=== PATIENT | male | born 1945 | race Caucasian/White ===

== ENCOUNTER 2021-02-09 18:46 | Inpatient (IN) | payer OTHER ==
[~2021-02-09] VITALS: Ht 175.3 cm; Wt 156.0 kg
[2021-02-09 20:24] LABS: BASOPHILS % (AUTO) 1.3 % (0.0-2.0); EOSINOPHILS % (AUTO) 2.8 % (1.0-6.0); HEMATOCRIT 31.2 % (41-53); HEMOGLOBIN 10.1 g/dL (13.5-17.5); LYMPHOCYTES # (AUTO) 1.4 K/uL (1.0-4.8); LYMPHOCYTES % (AUTO) 12.1 % (22.0-44.0); MEAN CORPUSCULAR HEMOGLOBIN 28.2 pg (26.0-34.0); MEAN CORPUSCULAR HGB CONC 32.4 G/dL (31.0-37.0); MEAN CORPUSCULAR VOLUME 87 fL (80-100); MONOCYTES % (AUTO) 8.9 % (2.0-9.0); NEUTROPHILS # (AUTO) 8.6 K/uL (1.8-7.7); NEUTROPHILS % (AUTO) 74.9 % (40.0-70.0); PLATELET COUNT (AUTO) 251 K/uL (150-450); RED BLOOD CELL COUNT(AUTO) 3.59 MIL/uL (4.50-5.90); RED CELL DISTRIBUTION WIDTH 15.9 % (11.5-14.5)
[2021-02-09 20:27] LABS: COVID AG,FIA SOURCE NASAL SWAB
[2021-02-09 20:33] LABS: CALCIUM, TOTAL 9.1 mg/dL (8.8-10.5); CREATININE 1.44 mg/dL (0.60-1.30); POTASSIUM 4.2 mmol/L (3.5-5.1)
[2021-02-09 20:38] LABS: ALBUMIN 2.5 g/dL (3.4-5.0); BILIRUBIN,TOTAL 0.5 mg/dL (0.1-1.0); TOTAL PROTEIN, SERUM 6.5 g/dL (6.4-8.2)
[2021-02-09 20:41] LABS: INR 1.1 (0.9-1.1); PROTHROMBIN TIME 11.8 SEC (9.4-11.6)
[2021-02-09 20:46] LABS: INFLUENZA TYPE A NEGATIVE FOR TYPE A (NEGATIVE); INFLUENZA TYPE B NEGATIVE FOR TYPE B (NEGATIVE)
[2021-02-09 21:34] LABS: D-DIMER 2.36 mg/L FEU (0.00-0.50)
[2021-02-09] MEDS ORDERED: SODIUM CHLORIDE 0.9% 0 ML ONE (22:49)
[2021-02-09] MEDS ORDERED: IOHEXOL 350 MG/ML 150 ML VIAL ONE (22:50)
[2021-02-10] MEDS ORDERED: ASCO500 PO (00:58)
[2021-02-10] MEDS ORDERED: INSREG SQ (01:18)
[2021-02-10] MEDS ORDERED: TRAM50TA4 PO (01:18)
[2021-02-10] MEDS ORDERED: SIMV-259 PO (01:18)
[2021-02-10] MEDS ORDERED: METO50 PO (01:18)
[2021-02-10] MEDS ORDERED: ASPI-1450 PO (01:18)
[2021-02-10] MEDS ORDERED: GLIP10TA9 PO (01:18)
[2021-02-10] MEDS ORDERED: INSNPH SQ (01:18)
[2021-02-10 01:31] LABS: GLUCOMETER DEV NAME(LOC) ERT.5; GLUCOSE,POINT OF CARE 78 MG/DL (70-110)
[2021-02-10] MEDS ORDERED: TraMADol HCL 50 MG TABLET PO PRN (03:30)
[2021-02-10] MEDS ORDERED: ACETAMINOPHEN 325 MG TABLET PO PRN (03:30)
[2021-02-10] MEDS ORDERED: ONDANSETRON HCL 4 MG/2 ML VIAL IVP PRN (03:30)
[2021-02-10] MEDS ORDERED: 0.9% SODIUM CHLORIDE 10 ML SYRINGE IVP PRN (03:30)
[2021-02-10] MEDS: ASPIRIN 81 MG CHEWABLE TABLET PO SCH (08:44)
[2021-02-10] MEDS: METOPROLOL TARTRATE 50 MG TABLET PO SCH ×2 (08:44→22:48)
[2021-02-10] MEDS: HEPARIN SODIUM,PORCINE 5,000 UNITS/ML VIAL SQ SCH ×2 (08:45→16:41)
[2021-02-10] MEDS: ASCORBIC ACID 500 MG TABLET PO SCH (08:45)
[2021-02-10] MEDS: SIMVASTATIN 10 MG TABLET PO SCH (08:45)
[2021-02-10] MEDS ORDERED: *CLINICAL-LEVOFLOXACIN IVPB DOSING CLINICAL ONE (14:45)
[2021-02-10 15:29] LABS: D-DIMER 3.29 mg/L FEU (0.00-0.50)
[2021-02-10 15:42] LABS: C-REACTIVE PROTEIN QUANT 9.91 mg/dL (0.00-0.30)
[2021-02-10] MEDS: LEVOFLOXACIN 750 MG/D5% WATER 150 ML IV SCH (16:41)
[2021-02-10 21:10] VITALS: BP 140/56
[2021-02-10 23:38] VITALS: BP 122/52
[2021-02-11] MEDS: HEPARIN SODIUM,PORCINE 5,000 UNITS/ML VIAL SQ SCH ×4 (00:16→23:31)
[2021-02-11] MEDS ORDERED: DEXTROSE 50%-WATER 25 GM/50 ML SYRINGE IVP PRN (01:30)
[2021-02-11 04:04] VITALS: BP 141/62
[2021-02-11 06:16] LABS: BASOPHILS % (AUTO) 0.7 % (0.0-2.0); EOSINOPHILS % (AUTO) 2.1 % (1.0-6.0); HEMATOCRIT 30.8 % (41-53); LYMPHOCYTES # (AUTO) 0.8 K/uL (1.0-4.8); LYMPHOCYTES % (AUTO) 7.1 % (22.0-44.0); MEAN CORPUSCULAR HEMOGLOBIN 28.5 pg (26.0-34.0); MEAN CORPUSCULAR HGB CONC 32.4 G/dL (31.0-37.0); MEAN CORPUSCULAR VOLUME 88 fL (80-100); MONOCYTES % (AUTO) 8.7 % (2.0-9.0); NEUTROPHILS # (AUTO) 9.7 K/uL (1.8-7.7); NEUTROPHILS % (AUTO) 81.4 % (40.0-70.0); PLATELET COUNT (AUTO) 230 K/uL (150-450); RED BLOOD CELL COUNT(AUTO) 3.51 MIL/uL (4.50-5.90); RED CELL DISTRIBUTION WIDTH 15.7 % (11.5-14.5)
[2021-02-11] MEDS ORDERED: INSULIN LISPRO 100 UNITS/ML SQ PRN (06:30)
[2021-02-11 06:38] LABS: CALCIUM, TOTAL 9.2 mg/dL (8.8-10.5); CREATININE 1.26 mg/dL (0.60-1.30); POTASSIUM 4.4 mmol/L (3.5-5.1)
[2021-02-11 07:15] VITALS: BP 136/59
[2021-02-11] MEDS: METOPROLOL TARTRATE 50 MG TABLET PO SCH ×2 (08:39→19:57)
[2021-02-11] MEDS: ASCORBIC ACID 500 MG TABLET PO SCH (08:39)
[2021-02-11] MEDS: SIMVASTATIN 10 MG TABLET PO SCH (08:40)
[2021-02-11] MEDS: ASPIRIN 81 MG CHEWABLE TABLET PO SCH (08:40)
[2021-02-11 11:17] VITALS: BP 127/44
[2021-02-11] MEDS: INSULIN LISPRO 100 UNITS/ML SQ PRN ×3 (11:33→21:26)
[2021-02-11] MEDS ORDERED: SODIUM CHLORIDE 0.9% 250 ML IV ONE (14:34)
[2021-02-11] MEDS ORDERED: LISI1TAB53 PO (14:39)
[2021-02-11 15:05] VITALS: BP 110/42
[2021-02-11] MEDS: LEVOFLOXACIN 750 MG/D5% WATER 150 ML IV SCH (15:23)
[2021-02-11 19:35] VITALS: BP 143/72
[2021-02-11 20:26] LABS: GLUCOMETER DEV NAME(LOC) 5S.2B; GLUCOSE,POINT OF CARE 131 MG/DL (70-110)
[2021-02-11 20:26] LABS: GLUCOMETER DEV NAME(LOC) 5S.2B; GLUCOSE,POINT OF CARE 140 MG/DL (70-110)
[2021-02-11 20:26] LABS: GLUCOMETER DEV NAME(LOC) 5S.2B; GLUCOSE,POINT OF CARE 218 MG/DL (70-110)
[2021-02-11 20:26] LABS: GLUCOMETER DEV NAME(LOC) 5S.1; GLUCOSE,POINT OF CARE 192 MG/DL (70-110)
[2021-02-11 23:28] VITALS: BP 142/70
[2021-02-12 03:20] VITALS: BP 149/70
[2021-02-12] MEDS: INSULIN LISPRO 100 UNITS/ML SQ PRN ×4 (06:15→20:55)
[2021-02-12 08:00] VITALS: BP 146/77
[2021-02-12] MEDS: SIMVASTATIN 10 MG TABLET PO SCH (09:03)
[2021-02-12] MEDS: ASCORBIC ACID 500 MG TABLET PO SCH (09:03)
[2021-02-12] MEDS: METOPROLOL TARTRATE 50 MG TABLET PO SCH ×2 (09:03→19:53)
[2021-02-12] MEDS: ASPIRIN 81 MG CHEWABLE TABLET PO SCH (09:03)
[2021-02-12] MEDS: HEPARIN SODIUM,PORCINE 5,000 UNITS/ML VIAL SQ SCH ×2 (09:04→16:51)
[2021-02-12 11:30] VITALS: BP 133/74
[2021-02-12 12:21] LABS: GLUCOMETER DEV NAME(LOC) 5S.1; GLUCOSE,POINT OF CARE 158 MG/DL (70-110)
[2021-02-12 16:00] VITALS: BP 131/73
[2021-02-12 16:24] LABS: EOSINOPHILS % (AUTO) 1.9 % (1.0-6.0); HEMATOCRIT 31.1 % (41-53); LYMPHOCYTES # (AUTO) 0.8 K/uL (1.0-4.8); LYMPHOCYTES % (AUTO) 7.6 % (22.0-44.0); MEAN CORPUSCULAR HEMOGLOBIN 28.1 pg (26.0-34.0); MEAN CORPUSCULAR HGB CONC 32.2 G/dL (31.0-37.0); MEAN CORPUSCULAR VOLUME 87 fL (80-100); MONOCYTES # (AUTO) 0.9 K/uL (0.1-1.0); MONOCYTES % (AUTO) 8.6 % (2.0-9.0); NEUTROPHILS # (AUTO) 8.2 K/uL (1.8-7.7); NEUTROPHILS % (AUTO) 80.9 % (40.0-70.0); PLATELET COUNT (AUTO) 221 K/uL (150-450); RED BLOOD CELL COUNT(AUTO) 3.55 MIL/uL (4.50-5.90); RED CELL DISTRIBUTION WIDTH 15.7 % (11.5-14.5)
[2021-02-12 16:32] LABS: CALCIUM, TOTAL 9.1 mg/dL (8.8-10.5); CREATININE 1.34 mg/dL (0.60-1.30); POTASSIUM 4.6 mmol/L (3.5-5.1)
[2021-02-12] MEDS: LEVOFLOXACIN 750 MG/D5% WATER 150 ML IV SCH (16:51)
[2021-02-12 19:32] VITALS: BP 104/67
[2021-02-12 20:51] LABS: GLUCOMETER DEV NAME(LOC) 5N.3; GLUCOSE,POINT OF CARE 214 MG/DL (70-110)
[2021-02-12 22:36] VITALS: BP 138/86
[2021-02-13] MEDS: HEPARIN SODIUM,PORCINE 5,000 UNITS/ML VIAL SQ SCH (00:06)
[2021-02-13 06:36] LABS: GLUCOMETER DEV NAME(LOC) 5S.1; GLUCOSE,POINT OF CARE 199 MG/DL (70-110)
[2021-02-13 22:51] LABS: GLUCOMETER DEV NAME(LOC) 5N.1C; GLUCOSE,POINT OF CARE 228 MG/DL (70-110)
[2021-02-13 22:51] LABS: GLUCOMETER DEV NAME(LOC) 5N.1C; GLUCOSE,POINT OF CARE 211 MG/DL (70-110)
== END 2021-02-13 00:25 | disposition short-term general hospital (02) | DRG 193 ==
LOC: EMS 18:48 → 5N 02-10 03:27
PROVIDERS: ADMIT Internal Medicine; ATTEND Internal Medicine
DX: J18.9 Pneumonia, unspecified organism (principal); J96.01 Acute respiratory failure with hypoxia; E87.2 Acidosis; N17.9 Acute kidney failure, unspecified; Z68.43 Body mass index [BMI] 50.0-59.9, adult; J90 Pleural effusion, not elsewhere classified; D68.59 Other primary thrombophilia; E11.9 Type 2 diabetes mellitus without complications; E66.01 Morbid (severe) obesity due to excess calories; E78.5 Hyperlipidemia, unspecified; I11.9 Hypertensive heart disease without heart failure; G47.33 Obstructive sleep apnea (adult) (pediatric); J44.9 Chronic obstructive pulmonary disease, unspecified; Z20.822 Contact with and (suspected) exposure to COVID-19; Z85.46 Personal history of malignant neoplasm of prostate; Z99.81 Dependence on supplemental oxygen; Z87.01 Personal history of pneumonia (recurrent); Z79.899 Other long term (current) drug therapy; Z88.0 Allergy status to penicillin; Z88.8 Allergy status to other drugs, medicaments and biological substances; Z91.013 Allergy to seafood; Z90.49 Acquired absence of other specified parts of digestive tract
CPT/HCPCS: 71045; 78582; 80048; 80053; 82728; 82962; 83615; 83735; 83880; 84484; 85025; 85379; 85384; 85610; 86140; 87081; 87804; 93005; 93970; 97110; 97163; 99291; J1644; J1956; J7050; Q9967; 36415-L1; 36415-TC; U0003